=== PATIENT | female | born 1980 | race American Indian/Alaskan Native ===

== ENCOUNTER 2021-02-21 13:36 | Emergency (ER) | payer BC ==
[2021-02-21] MEDS ORDERED: ACETAMINOPHEN 325 MG TAB PO ONE (15:18)
[2021-02-21] MEDS ORDERED: HYOSCYAMINE SUBL 0.125 MG TAB SL ONE (15:18)
[2021-02-21] MEDS ORDERED: ONDANSETRON 4 MG ODT TAB PO ONE (15:18)
--- NOTE | 2021-02-21 15:28 | Emergency Department Report ---
ED General Adult HPI - General Chief complaint: Abdominal Pain Stated complaint: HEADACHE, DIARRHEA, VOMITING, ABD PAIN Time Seen by Provider: 02/21/21 15:16 Source: patient Mode of arrival: Ambulatory Limitations: No Limitations - History of Present Illness Initial comments: Patient is a 40-year-old female presents emergency room with complaints of sandhya sea, vomiting, diarrhea that began this morning. He states that she has had approximately 4 episodes of each. She states that she was able to keep Gatorade down. She states that she also has a headache. Patient states that she feels abdominal soreness with vomiting but currently has no pain or cramping. She denies any fever, cough, shortness of breath, hematochezia, melena, hematemesis. She denies any known sick contacts. She denies any recent travel. She denies any recent antibiotics, water from a different source, spoiled or different foods. Past medical history of hypertension and states that she takes atenolol. No allergies to medications. She denies any past abdominal surgical history. last menstrual cycle 01/31/2021. - Related Data Previous Rx's Medication Instructions Recorded Last Taken Type Hyoscyamine Subl [Levsin Sl 0.125 0.125 mg SL Q6HR PRN #8 tab 02/21/21 Unknown Rx TAB] Ondansetron [Zofran Odt] 4 mg PO Q8HR PRN #8 tab.rapdis 02/21/21 Unknown Rx Allergies Allergy/AdvReac Type Severity Reaction Status Date / Time No Known Allergies Allergy Unverified 02/21/21 15:12 ED Review of Systems ROS: Stated complaint: HEADACHE, DIARRHEA, VOMITING, ABD PAIN Other details as noted in HPI Comment: All other systems reviewed and negative ED Past Medical Hx - Past Medical History Previous Medical History?: Yes Hx Hypertension: Yes - Surgical History Past Surgical History?: No - Social History Smoking Status: Never Smoker Substance Use Type: None - Medications Home Medications: Home Medications Medication Instructions Recorded Confirmed Last Taken Type Hyoscyamine Subl [Levsin Sl 0.125 0.125 mg SL Q6HR PRN #8 tab 02/21/21 Unknown Rx TAB] Ondansetron [Zofran Odt] 4 mg PO Q8HR PRN #8 tab.rapdis 02/21/21 Unknown Rx ED Physical Exam - General Limitations: No Limitations General appearance: alert, in no apparent distress - Head Head exam: Present: atraumatic, normocephalic - Eye Eye exam: Present: normal appearance - ENT ENT exam: Present: mucous membranes moist - Respiratory Respiratory exam: Present: normal lung sounds bilaterally. Absent: respiratory distress, wheezes, rales, rhonchi, stridor, chest wall tenderness, accessory muscle use, decreased breath sounds, prolonged expiratory - Cardiovascular Cardiovascular Exam: Present: regular rate, normal rhythm, normal heart sounds. Absent: systolic murmur, diastolic murmur, rubs, gallop - GI/Abdominal GI/Abdominal exam: Present: soft, normal bowel sounds. Absent: distended, tenderness, guarding, rebound, rigid - Neurological Exam Neurological exam: Present: alert, oriented X3 - Psychiatric Psychiatric exam: Present: normal affect, normal mood - Skin Skin exam: Present: warm, dry, intact ED Course Vital Signs 02/21/21 02/21/21 15:12 17:36 Temperature 98.6 F 99.5 F Pulse Rate 116 H 96 H Respiratory 18 15 Rate Blood Pressure 173/105 Blood Pressure 172/92 [Right] O2 Sat by Pulse 98 98 Oximetry ED Medical Decision Making - Lab Data Result diagrams: 02/21/21 15:43 02/21/21 15:43 Labs 02/21/21 02/21/21 02/21/21 15:43 15:43 15:43 WBC 9.4 RBC 4.62 Hgb 13.4 Hct 39.4 MCV 85 MCH 29 MCHC 34 RDW 13.3 Plt Count 292 Lymph % (Auto) 25.2 Richardson % (Auto) 7.0 Eos % (Auto) 0.1 Baso % (Auto) 0.4 Lymph # (Auto) 2.4 Richardson # (Auto) 0.7 Eos # (Auto) 0.0 Baso # (Auto) 0.0 Seg Neutrophils % 67.3 Seg Neutrophils # 6.3 Sodium 139 Potassium 4.1 Chloride 102.0 Carbon Dioxide 25 Anion Gap 16 BUN 8 Creatinine 0.7 Estimated GFR > 60 BUN/Creatinine Ratio 11 Glucose 83 Calcium 9.5 Total Bilirubin 0.30 AST 18 ALT 17 Alkaline Phosphatase 62 Total Protein 8.2 Albumin 4.7 Albumin/Globulin Ratio 1.3 Lipase 20 HCG, Qual Negative Urine Color Urine Turbidity Urine pH Ur Specific [place] Urine Protein Urine Glucose (UA) Urine Ketones Urine Blood Urine Nitrite Urine Bilirubin Urine Urobilinogen Ur Leukocyte Esterase Urine WBC (Auto) Urine RBC (Auto) U Epithel Cells (Auto) Urine Mucus 02/21/21 Unknown WBC RBC Hgb Hct MCV MCH MCHC RDW Plt Count Lymph % (Auto) Richardson % (Auto) Eos % (Auto) Baso % (Auto) Lymph # (Auto) Richardson # (Auto) Eos # (Auto) Baso # (Auto) Seg Neutrophils % Seg Neutrophils # Sodium Potassium Chloride Carbon Dioxide Anion Gap BUN Creatinine Estimated GFR BUN/Creatinine Ratio Glucose Calcium Total Bilirubin AST ALT Alkaline Phosphatase Total Protein Albumin Albumin/Globulin Ratio Lipase HCG, Qual Urine Color Yellow Urine Turbidity Clear Urine pH 8.0 H Ur Specific [place] 1.016 Urine Protein 30 mg/dl Urine Glucose (UA) Neg Urine Ketones Neg Urine Blood Neg Urine Nitrite Neg Urine Bilirubin Neg Urine Urobilinogen < 2.0 Ur Leukocyte Esterase Neg Urine WBC (Auto) 1.0 Urine RBC (Auto) 2.0 U Epithel Cells (Auto) < 1.0 Urine Mucus Few Vital Signs 02/21/21 02/21/21 15:12 17:36 Temperature 98.6 F 99.5 F Pulse Rate 116 H 96 H Respiratory 18 15 Rate Blood Pressure 173/105 Blood Pressure 172/92 [Right] O2 Sat by Pulse 98 98 Oximetry - Medical Decision Making Patient is a 40-year-old female presents emergency room with complaints of nausea, vomiting, diarrhea that began this morning. He states that she has had approximately 4 episodes of each. She states that she was able to keep Gatorade down. She states that she also has a headache. Patient states that she feels abdominal soreness with vomiting but currently has no pain or cramping. She denies any fever, cough, shortness of breath, hematochezia, melena, hematemesis. She denies any known sick contacts. She denies any recent travel. She denies any recent antibiotics, water from a different source, spoiled or different foods. Past medical history of hypertension and states that she takes atenolol. No allergies to medications. She denies any past abdominal surgical history. last menstrual cycle 01/31/2021. Initial vitals with tachycardia which improved upon repeat. Patient has no abdominal tenderness on exam, no guarding, no rebound, no rigidity, normal bowel sounds, no peritoneal signs. Labs are normal. UA is within normal limits. Patient given p.o. medications while in the emergency department with improvement of symptoms. She was able to tolerate p.o. intake without difficulty. She had no further episodes of vomiting or diarrhea while in the emergency department. Advised patient Please take medication as prescribed as needed. Increase your fluid intake over the next several days. Eat a bland liquid diet and slowly advance your diet as tolerated. Follow-up with a primary care doctor for reexamination. Return to emergency room immediately for any new or worsening symptoms including but not limited to worsening abdominal pain, unable to tolerate by mouth intake, blood in your stool or vomit, fever, etc. Critical care attestation.: If time is entered above; I have spent that time in minutes in the direct care of this critically ill patient, excluding procedure time. ED Disposition Clinical Impression: Nausea vomiting and diarrhea Disposition: TO HOME OR SELFCARE Is pt being admited?: No Does the pt Need Aspirin: No Condition: Stable Instructions: Viral Gastroenteritis, Adult, Abdominal Pain (ED) Additional Instructions: Please take medication as prescribed as needed. Increase your fluid intake over the next several days. Eat a bland liquid diet and slowly advance your diet as tolerated. Follow-up with a primary care doctor for reexamination. Return to emergency room immediately for any new or worsening symptoms including but not limited to worsening abdominal pain, unable to tolerate by mouth intake, blood in your stool or vomit, fever, etc. Prescriptions: Hyoscyamine Subl [Levsin Sl 0.125 TAB] 0.125 mg SL Q6HR PRN #8 tab PRN Reason: diarrhea/abdominal cramping Ondansetron [Zofran Odt] 4 mg PO Q8HR PRN #8 tab.rapdis PRN Reason: nausea/vomiting Referrals: BRADY GORDON MD [Primary Care Provider] - 2-3 Days Time of Disposition: 17:12 Print Language: ARMENIAN
[2021-02-21 16:05] LABS: Basophils % (Auto) 0.4 % (0.0-1.8); Eosinophils % (Auto) 0.1 % (0.0-4.3); Hematocrit 39.4 % (30.3-42.9); Hemoglobin 13.4 gm/dl (10.1-14.3); Lymphocytes # (Auto) 2.4 K/mm3 (1.2-5.4); Lymphocytes % (Auto) 25.2 % (13.4-35.0); Mean Corpuscular HGB Conc 34 % (30-34); Mean Corpuscular Volume 85 fl (79-97); Monocytes # (Auto) 0.7 K/mm3 (0.0-0.8); Platelet Count 292 K/mm3 (140-440); Red Blood Count 4.62 M/mm3 (3.65-5.03); Red Cell Distribution Width 13.3 % (13.2-15.2)
[2021-02-21 16:18] LABS: Alanine Aminotransferase 17 units/L (7-56); Albumin 4.7 g/dL (3.9-5); Blood Urea Nitrogen 8 mg/dL (7-17); Calcium 9.5 mg/dL (8.4-10.2); Hemolysis Index 10
[2021-02-21 16:19] LABS: BUN/Creatinine Ratio 11
[2021-02-21 16:58] LABS: Bilirubin,Urine NEG (Negative); Blood,Urine NEG (Negative); Color,Urine Yellow (Yellow); Mucus,Urine FEW /HPF; Urobilinogen,Urine < 2.0 mg/dL (<2.0)
[2021-02-21 17:38] VITALS: BP 172/92
== END 2021-02-21 17:35 | disposition home or self-care (01) ==
LOC: ED 13:36
DX: R11.2 Nausea with vomiting, unspecified (principal); R19.7 Diarrhea, unspecified; R51.9 Headache, unspecified; I10 Essential (primary) hypertension; Z79.899 Other long term (current) drug therapy
CPT/HCPCS: 36415; 80053; 81001; 83690; 84703; 85025; Q0162